=== PATIENT | female | born 1990 | race African-American/Black ===

== ENCOUNTER 2017-07-23 19:03 | Emergency (ER) | payer SELFPAY ==
[~2017-07-23] VITALS: Ht 170.2 cm; Wt 96.2 kg
[2017-07-23 19:19] VITALS: BP 124/81; Ht 170.2 cm; Wt 96.2 kg
== END 2017-07-23 20:49 | disposition left against medical advice (07) ==
LOC: ED 19:03
DX: T14.90XA Injury, unspecified, initial encounter (principal); L03.011 Cellulitis of right finger; W50.3XXA Accidental bite by another person, initial encounter; Y93.89 Activity, other specified; Y92.89 Other specified places as the place of occurrence of the external cause; Y99.8 Other external cause status
CPT/HCPCS: 90715; A4570; J1885

== ENCOUNTER 2018-01-22 21:17 | Emergency (ER) | payer MEDICAID ==
[~2018-01-22] VITALS: Ht 170.2 cm; Wt 101.7 kg
[2018-01-22 21:39] VITALS: BP 137/81; Ht 170.2 cm; Wt 101.7 kg
[2018-01-22 23:45] LABS: BASOPHIL % 0.4 % (0-2); PLATELET COUNT 342 x10^3mcL (130-400); RED CELL DISTRIBUTION WIDTH 13.7 % (11.5-14.5)
== END 2018-01-23 01:20 | disposition left against medical advice (07) ==
LOC: ED 21:17
PROVIDERS: Emergency Medicine
DX: N93.9 Abnormal uterine and vaginal bleeding, unspecified (principal); D64.9 Anemia, unspecified

== ENCOUNTER 2018-03-05 09:09 | Emergency (ER) | payer MEDICAID ==
[2018-03-05 09:17] VITALS: Ht 170.2 cm
[2018-03-05 10:41] VITALS: BP 140/70
== END 2018-03-05 10:41 | disposition home or self-care (01) ==
LOC: ED 09:09
DX: T63.441A Toxic effect of venom of bees, accidental (unintentional), initial encounter (principal); Y92.89 Other specified places as the place of occurrence of the external cause

== ENCOUNTER 2018-04-07 06:04 | Emergency (ER) | payer MEDICAID ==
[~2018-04-07] VITALS: Ht 170.2 cm; Wt 104.8 kg
[2018-04-07 06:14] VITALS: Ht 170.2 cm; Wt 104.8 kg
[2018-04-07 08:17] VITALS: BP 129/67
== END 2018-04-07 08:17 | disposition home or self-care (01) ==
LOC: ED 06:04
DX: O23.41 Unspecified infection of urinary tract in pregnancy, first trimester (principal); K59.00 Constipation, unspecified; Z3A.01 Less than 8 weeks gestation of pregnancy

== ENCOUNTER 2018-05-17 14:35 | Emergency (ER) | payer MEDICAID ==
[~2018-05-17] VITALS: Ht 170.2 cm; Wt 108.9 kg
[2018-05-17 14:43] VITALS: Ht 170.2 cm; Wt 108.9 kg
[2018-05-17 16:33] LABS: UA SPECIFIC GRAVITY 1.025 (1.005-1.035); microscopic required? YES; urine erythrocyte 1+ (NEGATIVE)
[2018-05-17 16:34] LABS: BASOPHIL % 0.3 % (0-2); PLATELET COUNT 316 x10^3mcL (130-400); RED CELL DISTRIBUTION WIDTH 13.6 % (11.5-14.5)
[2018-05-17 16:42] LABS: CALCIUM 8.3 mg/dL (8.5-10.1); CARBON DIOXIDE 25.1 mmol/L (21-32); CHLORIDE SERUM 104 mmol/L (98-107); CREATININE SERUM 0.7 mg/dL (0.6-1.0); GFR1 > 60 mL/min; GLUCOSE SERUM 78 mg/dL (74-106); POTASSIUM SERUM 3.8 mmol/L (3.5-5.1); SODIUM SERUM 137 mmol/L (136-145)
[2018-05-17 16:46] LABS: ALKALINE PHOSPHATASE 59 U/L (46-116); ALT/SGPT 18 U/L (14-59); AST/SGOT 11 U/L (15-37); TOTAL PROTEIN, SERUM 6.5 g/dL (6.4-8.2)
[2018-05-17 17:09] LABS: BILIRUBIN TOTAL < 0.1 mg/dL (0.20-1.00)
[2018-05-17 18:24] VITALS: BP 136/74
== END 2018-05-17 18:24 | disposition home or self-care (01) ==
LOC: ED 14:35
PROVIDERS: Emergency Medicine
DX: O26.891 Other specified pregnancy related conditions, first trimester (principal); R10.30 Lower abdominal pain, unspecified; R39.15 Urgency of urination; J45.909 Unspecified asthma, uncomplicated; Z3A.12 12 weeks gestation of pregnancy
CPT/HCPCS: 36415; Q0092